=== PATIENT | male | born 1985 | race Two or more races ===

== ENCOUNTER 2019-12-25 20:01 | Emergency (ER) | payer OTHER ==
[~2019-12-25] VITALS: Ht 182.9 cm; Wt 136.1 kg
--- NOTE | 2019-12-25 20:53 | NUR ---
Fuentes tyson in [facility] - 12/25/19 at 2057 by LEE Patient discharged to home in stable condition. Written and verbal after care instructions given. Patient verbalizes understanding of instruction.
--- NOTE | 2019-12-25 20:53 | NUR ---
Patient given written and verbal discharge instructions. Patient verbalizes understanding of instructions. Patient is ambulatory with steady gait. Refuses offer of detention placement. Patient given list of available shelters in surrounding area.
[2019-12-25 20:56] VITALS: BP 142/84
== END 2019-12-25 20:57 | disposition home or self-care (01) ==
LOC: ER 20:10
DX: F29 Unspecified psychosis not due to a substance or known physiological condition (principal); F31.9 Bipolar disorder, unspecified; F41.9 Anxiety disorder, unspecified; F20.9 Schizophrenia, unspecified; Z76.0 Encounter for issue of repeat prescription; Z59.0 Homelessness

== ENCOUNTER 2020-01-10 19:07 | Emergency (ER) | payer OTHER ==
[~2020-01-10] VITALS: Ht 182.9 cm; Wt 136.1 kg
--- NOTE | 2020-01-10 19:19 | NUR ---
BIBS FOR C/O DYSURIA AND LOWER BACK PAIN X 2 DAYS TO ER BED 1 AWAITING MD MERRILL.
[2020-01-10 19:48] LABS: APPEARANCE,URINE Slightly Cloudy (CLEAR); BILIRUBIN,URINE Negative (NEGATIVE); BLOOD, URINE Moderate Ery/uL (NEGATIVE); COLOR,URINE Yellow (YELLOW); KETONES,URINE Negative (NEGATIVE); LEUKOCYTE ESTERASE ,URINE Negative (NEGATIVE); NITRITE, URINE Negative (NEGATIVE); PROTEIN,URINE Negative (NEGATIVE); UGLUCOSE Negative (NEGATIVE); UROBILINOGEN,URINE 0.2 EU/dL (0.2)
[2020-01-10 20:13] LABS: BACTERIA,URINE Few /HPF (None Seen); MUCUS,URINE Few /LPF (None Seen); SQUAMOUS EPITHELIAL CELL,UR Few /HPF (None Seen); WBC,URINE 0-2 /HPF (0-3)
--- NOTE | 2020-01-10 20:16 | NUR ---
LAB CALLED FOR BLOOD DRAW.
--- NOTE | 2020-01-10 20:19 | NUR ---
TECH AT BEDSIDE FOR ULTRASOUND
[2020-01-10 20:47] LABS: POTASSIUM 4.1 mmol/L (3.5-5.1)
[2020-01-10 20:52] LABS: ALBUMIN 3.2 g/dL (3.4-5.0); BASOPHILS # (AUTO) 0.1 /CMM (0.0-0.2); BASOPHILS % (AUTO) 0.7 % (0.0-2.0); BILIRUBIN,DIRECT 0.1 mg/dL (0.0-0.2); BILIRUBIN,TOTAL 0.2 mg/dL (0.2-1.0); EOSINOPHILS % (AUTO) 6.1 % (0.0-6.0); HEMATOCRIT 42 % (39-51); HEMOGLOBIN 14.1 g/dL (13.5-17.5); LYMPHOCYTES # (AUTO) 3.1 /CMM (0.8-4.8); LYMPHOCYTES % (AUTO) 25.3 % (20.0-44.0); MEAN CORPUSCULAR HGB CONC 34 g/dl (31.0-36.0); MEAN CORPUSCULAR VOLUME 90 fL (80-96); MONOCYTES # (AUTO) 0.7 /CMM (0.1-1.30); MONOCYTES % (AUTO) 5.5 % (2.0-12.0); NEUTROPHILS # (AUTO) 7.7 /CMM (1.8-8.9); NEUTROPHILS % (AUTO) 62.4 % (43.0-81.0); PLATELET COUNT (AUTO) 230 /CMM (150-450); RED BLOOD CELL COUNT(AUTO) 4.66 MIL/uL (4.5-6.0); TOTAL PROTEIN, SERUM 6.5 g/dL (6.4-8.2); WHITE BLOOD COUNT (AUTO) 12.4 K/uL (4.3-11.0)
[2020-01-10] MEDS ORDERED: NAPROXEN 500 MG TABLET PO SCH (21:00)
[2020-01-10] MEDS ORDERED: NAPROXEN 250 MG TABLET ONE (21:03)
--- NOTE | 2020-01-10 22:05 | NUR ---
Patient discharged to home in stable condition. Written and verbal after care instructions given. Patient verbalizes understanding of instruction.
[2020-01-10 22:06] VITALS: BP 166/87
== END 2020-01-10 22:06 | disposition home or self-care (01) ==
LOC: ER 19:09
DX: R31.9 Hematuria, unspecified (principal); M54.5 Low back pain; E66.01 Morbid (severe) obesity due to excess calories; Z68.41 Body mass index [BMI] 40.0-44.9, adult; F41.9 Anxiety disorder, unspecified; F20.9 Schizophrenia, unspecified
CPT/HCPCS: 76770-TC; 80048-TC; 80076-TC; 81000-TC; 82962-TC; 85025-TC; 87491; 87591